=== PATIENT | male | born 1980 | race Caucasian/White ===

== ENCOUNTER 2018-05-09 14:05 | Emergency (ER) | payer BC, OTHER, SELFPAY ==
--- NOTE | 2018-05-09 15:27 | EDPHYS ---
Physician Documentation [facility] Name: Popeye Jovel Age: 37 yrs Sex: Male : 1980 Arrival Date: 05/09/2018 Time: 14:08 Bed 10 Private MD: Moisés Shi ED Physician Ki Armendariz HPI: 05/09 15:22 This 37 yrs old Male presents to ER via Ambulatory with complaints of kb Laceration To Lip. 15:22 The patient has a laceration related to: working, occurred outdoors, and there are no kb complicating factors. The injury was accidental. The laceration(s) is(are) located on the upper vermilion border. Onset: The symptoms/episode began/occurred just prior to arrival. Associated signs and symptoms: The patient has no apparent associated signs or symptoms. The patient has not experienced similar symptoms in the past. The patient has not recently seen a physician. Pt reports a razorblade fell off of a ladder and cut his lip. Here to make sure it doesn't need sutures. Historical: - Allergies: 14:20 No Known Allergies; ss - Immunization history:: Adult Immunizations not up to date. - Social history:: Smoking status: Patient uses tobacco products, smokes one pack cigarettes per day. - Ebola Screening: : Patient denies exposure to infectious person Patient denies travel to an Ebola-affected area in the 21 days before illness onset. ROS: 15:22 Constitutional: Negative for fever, chills, and weight loss, Cardiovascular: Negative kb for chest pain, palpitations, and edema, Respiratory: Negative for shortness of breath, cough, wheezing, and pleuritic chest pain, Abdomen/GI: Negative for abdominal pain, nausea, vomiting, diarrhea, and constipation, Back: Negative for injury and pain, MS/Extremity: Negative for injury and deformity, Neuro: Negative for headache, weakness, numbness, tingling, and seizure. 15:22 Skin: Positive for laceration(s), of the upper vermilion border. Exam: 15:22 Constitutional: This is a well developed, well nourished patient who is awake, alert, kb and in no acute distress. Chest/axilla: Normal chest wall appearance and motion. Nontender with no deformity. No lesions are appreciated. Cardiovascular: Regular rate and rhythm with a normal S1 and S2. No gallops, murmurs, or rubs. Normal PMI, no JVD. No pulse deficits. Respiratory: Lungs have equal breath sounds bilaterally, clear to auscultation and percussion. No rales, rhonchi or wheezes noted. No increased work of breathing, no retractions or nasal flaring. Abdomen/GI: Soft, non-tender, with normal bowel sounds. No distension or tympany. No guarding or rebound. No evidence of tenderness throughout. Skin: Warm, dry with normal turgor. Normal color with no rashes, no lesions, and no evidence of cellulitis. MS/ Extremity: Pulses equal, no cyanosis. Neurovascular intact. Full, normal range of motion. Neuro: Awake and alert, GCS 15, oriented to person, place, time, and situation. Cranial nerves II-XII grossly intact. Motor strength 5/5 in all extremities. Sensory grossly intact. Cerebellar exam normal. Normal gait. 15:22 Head/face: Noted is no obvious of injury or deformity except a laceration(s), that is superficial, 0.5 cm(s), of the upper vermilion border. Vital Signs: 14:20 BP 143 / 88; Pulse 78; Resp 16; Temp 98.2(TE); Pulse Ox 99% on R/A; Weight 74.84 kg; ss Height 5 ft. 10 in. (177.80 cm); Pain 5/10; 14:20 Body Mass Index 23.67 (74.84 kg, 177.80 cm) ss MDM: 15:08 Patient medically screened. kb 15:25 Data reviewed: vital signs, nurses notes. Data interpreted: Pulse oximetry: on room air kb is 99 %. Interpretation: normal. Counseling: I had a detailed discussion with the patient and/or guardian regarding: the historical points, exam findings, and any diagnostic results supporting the discharge/admit diagnosis, the need for outpatient follow up, a family practitioner, to return to the emergency department if symptoms worsen or persist or if there are any questions or concerns that arise at home. ED course: laceration well approximated, no gaping.. Administered Medications: 15:43 Drug: Tetanus-Diphtheria Toxoid Adult 0.5 ml {Post Secondary Professional: [employer]. Exp: ss 02/27/2020. Lot #: [id number]. } Route: IM; Site: right deltoid; 16:12 Follow up: Response: No adverse reaction ss Disposition: 05/09/18 15:26 Discharged to Home. Impression: Laceration without foreign body of lip. - Condition is Stable. - Discharge Instructions: Mouth Laceration, [id number]. - Medication Reconciliation Form, Thank You Letter, Antibiotic Education, Prescription Opioid Use form. - Follow up: Emergency Department; When: As needed; Reason: Worsening of condition. Follow up: Private Physician; When: 2 - 3 days; Reason: Recheck today's complaints, Continuance of care, Re-evaluation by your physician. Addendum: 05/11/2018 09:12 Co-signature as Attending Physician, Ki Armendariz MD I agree with the assessment and k dr plan of care. Signatures: Lissy Aiken, COVER STRIPPER-C COVER STRIPPER-Ckb Ki Armendariz MD MD [facility] Debora Geiger RN RN ss Corrections: (The following items were deleted from the chart) 05/09 16:13 15:26 05/09/2018 15:26 Discharged to Home. Impression: Laceration without foreign body ss of lip. Condition is Stable. Forms are Medication Reconciliation Form, Thank You Letter, Antibiotic Education, Prescription Opioid Use. Follow up: Emergency Department; When: As needed; Reason: Worsening of condition. Follow up: Private Physician; When: 2 - 3 days; Reason: Recheck today's complaints, Continuance of care, Re-evaluation by your physician. kb
--- NOTE | 2018-05-09 15:27 | ER ---
Nurse's Notes [facility] Name: Popeye Jovel Age: 37 yrs Sex: Male : 1980 Arrival Date: 05/09/2018 Time: 14:08 Bed 10 Private MD: Moisés Shi Diagnosis: Laceration without foreign body of lip Presentation: 05/09 14:19 Presenting complaint: Patient states: "a razor blade fell on my lip about an hour ago ss and I just want to see if I need stitches." Pt reports that the razor blade was new. <1 cm laceration noted to upper lip. no bleeding noted at this time. Transition of care: patient was not received from another setting of care. Complicating Factors: There are no complicating factors for this patient. Onset of symptoms was May 09, 2018. Risk Assessment: Do you want to hurt yourself or someone else? Patient reports no desire to harm self or others. Initial Sepsis Screen: Does the patient meet any 2 criteria? No. Patient's initial sepsis screen is negative. Does the patient have a suspected source of infection? No. Patient's initial sepsis screen is negative. Care prior to arrival: None. 14:19 Method Of Arrival: Ambulatory ss 14:19 Acuity: TULIO 5 ss Historical: - Allergies: 14:20 No Known Allergies; ss - Immunization history:: Adult Immunizations not up to date. - Social history:: Smoking status: Patient uses tobacco products, smokes one pack cigarettes per day. - Ebola Screening: : Patient denies exposure to infectious person Patient denies travel to an Ebola-affected area in the 21 days before illness onset. Screenin:53 Abuse screen: Denies threats or abuse. Denies injuries from another. Nutritional ss screening: No deficits noted. Tuberculosis screening: No symptoms or risk factors identified. Never had TB. Fall Risk None identified. Assessment: 15:15 General: Appears in no apparent distress. comfortable, Behavior is calm, cooperative. ss Pain: Complains of pain in upper vermilion border Pain currently is 5 out of 10 on a pain scale. Neuro: Level of Consciousness is awake, alert, obeys commands, Oriented to person, place, time, situation. Respiratory: Airway is patent Respiratory effort is even, unlabored, Respiratory pattern is regular, symmetrical. GI: Patient currently denies. EENT: Oral mucosa is moist. Throat is clear. Musculoskeletal: Circulation, motion, and sensation intact. Range of motion: intact in all extremities, Swelling absent. Injury Description: Laceration sustained to upper vermilion border is clean, 0.5 to 2.5 cm long, was sustained 1-2 hours ago. Vital Signs: 14:20 BP 143 / 88; Pulse 78; Resp 16; Temp 98.2(TE); Pulse Ox 99% on R/A; Weight 74.84 kg; ss Height 5 ft. 10 in. (177.80 cm); Pain 5/10; 14:20 Body Mass Index 23.67 (74.84 kg, 177.80 cm) ss ED Course: 14:08 Patient arrived in ED. as 14:09 Moisés Shi MD is Private Physician. as 14:20 Triage completed. ss 14:20 Arm band placed on left wrist. ss 14:53 Patient has correct armband on for positive identification. Bed in low position. Call ss light in reach. 15:07 Lissy Aiken FNP-C is [facility]. kb 15:07 Ki Armendariz MD is Attending Physician. kb 15:47 Debora Geiger RN is Primary Nurse. ss 15:48 No provider procedures requiring assistance completed. Patient did not have IV access ss during this emergency room visit. Administered Medications: 15:43 Drug: Tetanus-Diphtheria Toxoid Adult 0.5 ml {Medical Assistant Prn: Drive [employer]. Exp: ss 02/27/2020. Lot #: [id number]. } Route: IM; Site: right deltoid; 16:12 Follow up: Response: No adverse reaction ss Outcome: 15:26 Discharge ordered by . kb 16:12 Discharged to home ambulatory. ss 16:12 Condition: good 16:12 Discharge instructions given to patient, Instructed on discharge instructions, follow up and referral plans. Demonstrated understanding of instructions, follow-up care. 16:13 Patient left the ED. ss Signatures: Lissy Aiken FNP-C FNP-Ckb Martinez, Amelia as Debora Geiger, DEVNI RN ss
[2018-05-09] MEDS ORDERED: TETANUS & DIPHTHERIA TOX,ADULT 0.5 ML VIAL ONE (15:49)
== END 2018-05-09 16:13 | disposition home or self-care (01) ==
LOC: ER 14:05
DX: S01.511A Laceration without foreign body of lip, initial encounter (principal); W45.8XXA Other foreign body or object entering through skin, initial encounter; Y93.89 Activity, other specified; Y92.89 Other specified places as the place of occurrence of the external cause; Z23 Encounter for immunization; F17.210 Nicotine dependence, cigarettes, uncomplicated
CPT/HCPCS: 90714; 99283